=== PATIENT | female | born 1945 | race Two or more races ===

== ENCOUNTER 2021-11-09 05:27 | Emergency (ER) | payer MEDICARE, OTHER ==
[~2021-11-09] VITALS: Ht 152.4 cm; Wt 39.9 kg
[2021-11-09] MEDS ORDERED: PROPOFOL 100 ML IV ONE (05:39)
[2021-11-09] MEDS ORDERED: ROCURONIUM 10MG/ML 10ML VIAL IV ONE (05:39)
[2021-11-09] MEDS ORDERED: PROPOFOL 100 ML IV SCH (05:45)
[2021-11-09] MEDS: ROCURONIUM 10MG/ML 10ML VIAL IV ONE ×2 (05:45→06:27)
[2021-11-09 05:56] LABS: Basophils # (auto) 0.1 10 ^3/uL (0-0.2); Basophils % (auto) 0.5 % (0.0-2.0); Eosinophils # (auto) 0 10 ^3/uL (0-0.8); Eosinophils % (auto) 0.1 % (0.0-7.0); Hematocrit 39.1 % (36.0-46.0); Hemoglobin 12.9 g/dL (12.2-16.2); Lymphocytes # (auto) 2.4 10 ^3/uL (0.4-5.4); Lymphocytes % (auto) 16.7 % (10.0-50.0); Mean Corpuscular Volume 90.8 fL (80.0-100.0); Monocytes # (auto) 0.8 10 ^3/uL (0-1.3); Monocytes % (auto) 5.5 % (0.0-12.0); Neutrophils # (auto) 11.3 10 ^3/uL (1.6-8.6); Neutrophils % (auto) 77.2 % (37.0-80.0); Nucleated Red Blood Cells % 0.1 %; Red Blood Cells 4.31 10^6/uL (4.0-5.20); Red Cell Distribution Width 12.8 % (11.8-14.3); White Blood Cell 14.6 10^3/uL (4.4-10.8)
[2021-11-09 06:11] LABS: INR 1.1 (0.9-1.15)
[2021-11-09 06:22] LABS: Albumin 3.5 g/dL (3.4-5.0); BUN/Creatinine Ratio 15.4; Calcium 8.6 mg/dL (8.5-10.1); Potassium 3.5 mmol/L (3.5-5.1)
[2021-11-09 06:26] LABS: Bilirubin, Total 0.3 mg/dL (0.2-1.0); Total Protein 7.4 g/dL (6.4-8.2)
[2021-11-09] MEDS ORDERED: NOREPINEPHRINE 8 MG/250ML KIT 250 ML IV ONE (07:00)
[2021-11-09 09:13] VITALS: BP 109/75
== END 2021-11-09 09:33 | disposition short-term general hospital (02) ==
LOC: ER 05:27 → EDBD 05:27 → ER 09:33
DX: S06.6X9A Traumatic subarachnoid hemorrhage with loss of consciousness of unspecified duration, initial encounter (principal); J96.90 Respiratory failure, unspecified, unspecified whether with hypoxia or hypercapnia; R41.82 Altered mental status, unspecified; E78.5 Hyperlipidemia, unspecified; I10 Essential (primary) hypertension; X58.XXXA Exposure to other specified factors, initial encounter; Y93.89 Activity, other specified; Y92.89 Other specified places as the place of occurrence of the external cause; Y99.8 Other external cause status
CPT/HCPCS: 36415; 36600; 70450; 71045; 80053; 82805; 84484; 85025; 85610; 87070; 87205; 93005; 96374; 99291; J1953; J2704; J7060; 87077; 87186; 94002